=== PATIENT | male | born 1935 | race Caucasian/White ===

== ENCOUNTER → 2016-10-06 | Day surgery (SDC) | payer MEDICARE, BC ==
[~2016-10-06] MED LIST: 1-ME1LIQ PO; BAYE325T3 PO; BUPIVACAINE/EPINEPHRINE 0.25% 50 ML VIAL ONE; COLA750C2 PO; KETOROLAC TROMETHAMINE 30 MG/ML (IVP) VIAL IV PUSH ONE; LACTATED RINGER'S 1000 ML INJ 1,000 ML ONE; METO25 PO; MIDAZOLAM HCL 2 MG/2 ML VIAL ONE; PROPOFOL 100 MG/10 ML INJ IV ONE; PROS5TAB2 PO; TAMS0.4C67 PO; VITA500015 PO; VYTO10TA35 PO; ceFAZolin 2 GM PREMIX 50 ML ONE; chlorthalidone PO
--- NOTE | 2016-10-06 16:59 | TN ---
cc: RABIA MILTON M.D. DATE OF SURGERY: 10/06/2016 PREOPERATIVE DIAGNOSIS 1. Symptomatic left inguinal hernia. 2. Status post placement of penile prosthesis on the left side. POSTOPERATIVE DIAGNOSIS 1. Symptomatic left inguinal hernia. 2. Status post placement of penile prosthesis on the left side. 3. Probable indirect and direct inguinal hernia with disruption total disruption of inguinal floor. PROCEDURE PERFORMED Open left inguinal hernia repair with mesh. SURGEON Rabia Milton [employer]ER Carito Mayes MS 3 ANESTHESIA General LMA COMPLICATIONS None. INDICATIONS FOR PROCEDURE: Mr. Hodge very pleasant 81-year-old gentleman who underwent a penile prosthesis placement on the left side several years ago by Dr. Dawson. The patient developed a symptomatic bulge in his left groin. He was sent for a CT scan of the abdomen and pelvis which showed left inguinal hernia with sigmoid colon. He was referred for surgical evaluation. Risks and benefits of open repair with mesh was discussed with him including possibility of injury or damage to his pain, brought the prosthesis and he was agreeable. Details the patient identified, brought to the operating placed supine on the table. After adequate general anesthesia achieved LMA the groin and genitals were prepped and draped in standard surgical fashion. 0.25% Marcaine injected skin and subcutaneous tissue along the patient's previous left inguinal incision. Left inguinal incision was then opened. Dissection was carried down through the subcutaneous tissue down to the level of the external oblique. Lateral external oblique was then opened the lateral to were all the patient's previous scar tissue was noted. The external oblique was opened sharply. Dissection proceeded down into the scar tissue. Once we got down into the scar tissue it was very difficult to tell what was a cord structures and what was hernia. There is basically a total disruption of the internal ring as well as the inguinal floor. Using meticulous and careful dissection we were able to dissect out while we felt were appropriate cord structures including the vasculature and vas deferens. These were carefully encircled with [place] drain. We then directed our attention to the inguinal floor and hernia sac. Overall there was total obstruction of the inguinal floor as well as disruption of the internal ring. This was most likely a combination of direct and indirect hernia likely from previous surgical intervention in the left groin. Attention was now directed to repair. Repair was accomplished using a piece of polypropylene mesh. The penile prosthesis tubing and reservoir were palpated and found be medial this behind the pubic bone. These were carefully kept out of the operative field. Attention was directed to the mesh repair. Mesh was secured medially at Chun's ligament pubic tubercle, again away from the penile prosthesis and tubing. It was secured inferior along the shelving edge of inguinal ligament superior along the conjoined tendon transversalis fascia. A slit was cut for the cord structures and they were allowed to pass through the mesh. Internal ring was appropriately tightened. With this the inguinal floor was completely reconstructed and the internal ring appropriately tightened. Wound was copiously irrigated normal saline solution. Cord structures were returned to their anatomic position. Again the penile prosthesis tubing and brother were palpated and found to be intact with no leakage of saline. No bleeding. Attention was now directed to closure. External oblique was closed along the course its fibers using a 2-0 Vicryl. The scar tissue and Buster fascia were then closed with 3-0 Vicryl and skin was closed with 4-0 Vicryl. 20 cc of cor0.25% Marcaine was then injected in the operative area. Sterile dressings were applied. The patient was awakened, brought to recovery in stable condition. MD ZUHAIR Brooke/francisco /12:45 PM /4:49 PM
== END | disposition home or self-care (01) ==
LOC: ESDC 09:18
PROVIDERS: ATTEND Surgery Trauma Surgery
DX: K40.90 Unilateral inguinal hernia, without obstruction or gangrene, not specified as recurrent (principal)
CPT/HCPCS: 00830; 49505; C1781; J0690; J1885; J2250; J3010; J7120